=== PATIENT | female | born 1970 | race Caucasian/White ===

== ENCOUNTER → 2020-05-20 15:44 | Outpatient (CLI) | payer BC, SELFPAY ==
--- NOTE | 2020-05-20 15:50 | DI.US.S_ITS ---
PROCEDURE: US ABDOMEN LIMITED INDICATIONS: LEFT UPPER QUADRANT MASS TECHNIQUE: Real-time focused scanning was performed of the superficial left upper quadrant, with image documentation. COMPARISON: None. FINDINGS: There is a questionable fascial defect in the superficial muscle fascia of the left upper quadrant measuring about 4 mm, but no discrete herniation of underlying peritoneal fat. No discrete in capsulated subcutaneous mass or cyst was visible. IMPRESSION: 1. No convincing findings of hernia, superficial mass, or cyst. Dictated by: Elda Conner M.D. on 05/22/2020 at 9:47 Approved by: Elda Conner M.D. on 05/22/2020 at 9:50
== END ==
PROVIDERS: PCP Physician Assistant Medical; Referring Provider Physician Assistant Medical; Visit Provider Physician Assistant Medical
DX: R19.02 Left upper quadrant abdominal swelling, mass and lump (principal)
CPT/HCPCS: 76700; 76705

== ENCOUNTER → 2021-09-26 13:41 | Outpatient (CLI) | payer BC, SELFPAY ==
--- NOTE | 2021-09-26 13:42 | DI.MRI.S_ITS ---
PROCEDURE: MR LUMBAR SPINE WO CON INDICATIONS: Radiculopathy, lumbar region TECHNIQUE: Noncontrast sagittal T1 spin echo and T2 fast echo, sagittal STIR, and T2 fast spin echo through the lumbar spine. In cases with scoliosis, additional coronal T2 fast spin echo may be performed. COMPARISON: None. FINDINGS: Image quality: Excellent. Alignment and Curvature: There is normal bony alignment. Bone Marrow: Marrow is of normal overall signal. No acute vertebral body compression fractures. Spinal Cord: Conus medullaris terminates at the L1 level. Visualized cord demonstrates normal signal and size. Paraspinous Soft Tissues: No paravertebral masses. T12-L1: Normal appearance. L1-L2: Normal appearance. L2-L3: Normal appearance. L3-L4: Mild disc desiccation. No canal stenosis. No neural foraminal stenosis. L4-L5: Mild disc bulge. Mild facet and ligamentum flavum hypertrophy. No canal stenosis. No foraminal stenosis. L5-S1: Mild disc bulge. Mild facet sclerosis. No canal stenosis. No foraminal stenosis. There is a small posterior focal high-intensity zone. IMPRESSION: 1. Small L5-S1 annular fibrosis tear. 2. No significant canal stenosis or neural foraminal narrowing of the lumbar spine. Dictated by: Laure Alaniz M.D. on 09/27/2021 at 9:21 Approved by: Laure Alaniz M.D. on 09/27/2021 at 9:24
== END ==
PROVIDERS: PCP Physician Assistant Medical; Referring Provider Physical Medicine & Rehabilitation; Visit Provider Physical Medicine & Rehabilitation
DX: M54.16 Radiculopathy, lumbar region (principal); M51.37 Other intervertebral disc degeneration, lumbosacral region
CPT/HCPCS: 72148

== ENCOUNTER 2022-07-13 09:26 | Day surgery (SDC) | payer OTHER, SELFPAY ==
[2022-07-13 09:40] VITALS: BP 130/82; PULSE 72; RESP 18; TEMP 36.4; O2SAT 99; BMI 31.7
[2022-07-13] MEDS: LACTATED RINGERS 1,000 ML 100 ML IV (09:48)
--- NOTE | 2022-07-13 10:11 | PM.HP.1 ---
History of Present Illness History of Present Illness Date Patient Seen: 07/13/22 Chief complaint: Colonoscopy Narrative: Screening with history of colon cancer in 2 second-degree relatives [facility] Medical History (Updated 07/13/22 @ 09:44 by Jocelin Robbins RN) Asthma Chronic back pain Endometriosis Hyperlipemia Tonsillar and adenoid hypertrophy Vitamin D deficiency Social History household members: spouse alcohol intake: current Meds Home Medications and Allergies Home Medications Medication Instructions Recorded Confirmed Type No Known Home Medications 07/13/22 07/13/22 History Allergies Allergy/AdvReac Type Severity Reaction Status Date / Time erythromycin base AdvReac Intermediate Hives Verified 07/13/22 09:44 [From Erythrocin] Exam Vital Signs (past 8 hours): - 07/13/22 09:40 Temperature 97.6 F Pulse Rate 72 Respiratory Rate 18 Blood Pressure 130/82 Pulse Oximetry 99 Oxygen Delivery Method Room Air Oxygen Delivery Method Room Air Narrative Exam Narrative: Oropharynx free of lesions Chest clear to auscultation percussion Cardiac exam reveals no S3 or murmur Assessment & Plan Assessment & Plan narrative: History of 2 second-degree relatives with colon cancer. Need for colorectal cancer screening. Risks, benefits, alternatives have been explained.
--- NOTE | 2022-07-13 10:12 | PM.OP.COLON ---
Operative Date/Time/Diagnoses Date of procedure: 07/13/22 Procedure & Clinicians Study performed: Colonoscopy Indications: Screening and family history Surgeon: Elei Spaulding Procedure Notes Procedure in detail: After informed consent was obtained the patient was placed in left lateral decubitus position. The video colonoscope was introduced the rectum slowly advanced cecum. On slow withdrawal mucosa was carefully examined. Preparation was good. The scope was removed. The patient tolerated procedure well. Blood loss none Complications none Sedation mac Findings 1. Normal colonoscopy to cecum although fairly tortuous Farheen should have follow-up colonoscopy in 5-7 years. If she desires referral could be made to genetic screening to determine whether she needs genetic testing for HNPCC
[2022-07-13 10:51] VITALS: BP 107/65; PULSE 63; RESP 18; TEMP 36.6; O2SAT 99
[2022-07-13 10:54] VITALS: BP 110/71; PULSE 65; RESP 18; O2SAT 98
[2022-07-13 10:59] VITALS: BP 115/76; PULSE 64; RESP 16; TEMP 36.8; O2SAT 99
[2022-07-13 11:03] VITALS: BP 116/80; PULSE 61; RESP 18; TEMP 37; O2SAT 99
== END 2022-07-13 11:28 | disposition home or self-care (01) ==
PROVIDERS: PCP Student in an Organized Health Care Education/Training Program; Referring Provider Internal Medicine Gastroenterology; Visit Provider Internal Medicine Gastroenterology
PROC: 0DJD8ZZ Inspection of Lower Intestinal Tract, Via Natural or Artificial Opening Endoscopic (ICD-10-PCS; CPT 45378; principal; 2022-07-13 10:30)
DX: Z12.11 Encounter for screening for malignant neoplasm of colon (principal); Z80.0 Family history of malignant neoplasm of digestive organs
CPT/HCPCS: 45378; J2704